=== PATIENT | male | born 1960 | race Caucasian/White ===

== ENCOUNTER 2017-04-22 10:34 | Emergency (ER) | payer OTHER ==
[2017-04-22 10:45] VITALS: BP 145/91; TEMP 96.9; O2SAT 98
[2017-04-22] MEDS ORDERED: OPHTHALMIC SALT SOLUTION 120 ML BTTL ONE (10:47)
--- NOTE | 2017-04-22 10:59 | ED.PDOC ---
History of Present Illness - General Chief Complaint: Eye Problems Stated Complaint: possible metal in left eye Time Seen by Provider: 04/22/17 10:56 Source: patient Exam Limitations: no limitations - History of Present Illness Timing/Duration: 24 hours Improving Factors: nothing Worsening Factors: nothing Allergies/Adverse Reactions: Allergies Eszopiclone [From Lunesta] Allergy (Verified 04/22/17 10:45) Home Medications: Ambulatory Orders Effexor 04/22/17 Moxifloxacin HCl (Ophth) [Vigamox] 3 ml OP 5XD 5 Days #2 ava 04/22/17 Zocor 04/22/17 Review of Systems - Review of Systems Constitutional: States: no symptoms reported EENTM: States: no symptoms reported, eye pain, blurred vision, tearing Respiratory: States: no symptoms reported Cardiology: States: no symptoms reported Gastrointestinal/Abdominal: States: no symptoms reported Genitourinary: States: no symptoms reported Musculoskeletal: States: no symptoms reported Skin: States: no symptoms reported Neurological: States: no symptoms reported Endocrine: States: no symptoms reported Hematologic/Lymphatic: States: no symptoms reported Past Medical History (General) - Patient Medical History Hx Stroke: No Hx Congestive Heart Failure: No Hx Diabetes: No Hx Cancer: Yes - CLL - Vaccination History Hx Tetanus, Diphtheria Vaccination: Yes Hx Influenza Vaccination: No - Social History Hx Tobacco Use: Yes Hx Chewing Tobacco Use: Yes Family Medical History - Family History Father Family History: Unknown Living Status: Unknown Physical Exam - Physical Exam General Appearance: Alert, Comfortable, Well Developed, Well Groomed, Well Hydrated, Well Nourished Eye Exam: right normal - left eye conjunctiva injected there is Flurocein stain uptake int h left eye lower temporal canthus, right other, bilateral abnormal EOM Ears, Nose, Throat: hearing grossly normal, normal ENT inspection Neck: non-tender, full range of motion, supple Respiratory: chest non-tender, lungs clear, normal breath sounds, no respiratory distress, no accessory muscle use Cardiovascular/Chest: normal peripheral pulses, regular rate, rhythm, no edema, no gallop, no JVD, no murmur, JVD Gastrointestinal/Abdominal: normal bowel sounds, non tender, soft Rectal Exam: normal exam, normal rectal tone Back Exam: normal inspection Departure - Departure Clinical Impression: Non-penetrating eye injury Disposition: Discharge to Home or Self Care Condition: Good Departure Forms: ED Discharge - Pt. Copy, Patient Portal Self Enrollment Referrals: LD HORN [Referring] - 1-2 Weeks Prescriptions: Moxifloxacin HCl (Ophth) [Vigamox] 3 ml OP 5XD 5 Days #2 ava Home Medications: Ambulatory Orders Effexor 04/22/17 Moxifloxacin HCl (Ophth) [Vigamox] 3 ml OP 5XD 5 Days #2 ava 04/22/17 Zocor 04/22/17
[2017-04-22] MEDS ORDERED: TOBRAMYCIN SULF 0.3 % OPHT SOL 1 DROP LEFT_EYE ONE (11:08)
== END 2017-04-22 11:39 | disposition home or self-care (01) ==
LOC: ER 10:34
DX: S05.92XA Unspecified injury of left eye and orbit, initial encounter (principal); C91.10 Chronic lymphocytic leukemia of B-cell type not having achieved remission; Z87.891 Personal history of nicotine dependence; X58.XXXA Exposure to other specified factors, initial encounter; Y92.9 Unspecified place or not applicable

== ENCOUNTER 2017-10-02 13:10 | Inpatient (IN) | payer OTHER ==
[2017-10-02] MEDS ORDERED: ONDANSETRON INJ 4 MG/2 ML VIAL IV ONE (13:36)
[2017-10-02] MEDS ORDERED: SODIUM CHLORIDE 0.9% (FLUSH) 10 ML SYG IV PRN ×2 (13:36→18:04)
[2017-10-02] MEDS ORDERED: KETOROLAC TROMETHAMINE INJ 30 MG/ML VIAL IV ONE (13:36)
[2017-10-02] MEDS ORDERED: CLINDAMYCIN IV 900MG 900 MG in PREMIX BAG 1 BAG IVPB ONE (13:37)
[2017-10-02] MEDS ORDERED: diphenhydrAMINE HCL 50 MG/ML VIAL IV ONE (13:37)
[2017-10-02] MEDS ORDERED: CLINDAMYCIN IV 900MG 50 ML IVPB ONE (14:45)
--- NOTE | 2017-10-02 14:57 | ED.PDOC ---
History of Present Illness - General Chief Complaint: Skin/Abrasion/Tear Stated Complaint: right forearm abscess Time Seen by Provider: 10/02/17 13:35 Source: patient Exam Limitations: no limitations - History of Present Illness Initial Comments: PT PRESENTS WITH COMPLAINT OF REDNESS, PAIN, AND SWELLING TO THE RIGHT FOREARM SECONDARY TO A SPIDER BITE 3 DAYS AGO. PT REPORTS HE WAS SEEN THIS AM AT WALK IN CLINIC AND PRESCRIBED KEFLEX. PT REPORTS THAT SWELLING HAS DOUBLED IN SIZE, PAIN HAS INCREASED, AND PT NOW COMPLAINS OF NAUSEA. PT HAS A HISTORY OF CLL AND REPORTS LAST WBC WAS 35,000 Severity: severe Location: extremities Improving Factors: nothing Worsening Factors: nothing Associated Symptoms: change in skin texture, swelling/mass/lumps Allergies/Adverse Reactions: Allergies Eszopiclone [From Lunesta] Allergy (Verified 10/02/17 13:39) Home Medications: Ambulatory Orders Effexor 04/22/17 Moxifloxacin HCl (Ophth) [Vigamox] 3 ml OP 5XD 5 Days #2 ava 04/22/17 Zocor 04/22/17 Review of Systems - Review of Systems Constitutional: Denies: chills, fever EENTM: Denies: nose congestion, throat pain Respiratory: Denies: cough, short of breath Cardiology: Denies: chest pain, palpitations Gastrointestinal/Abdominal: States: nausea. Denies: diarrhea, vomiting Genitourinary: Denies: dysuria, frequency Musculoskeletal: Denies: joint pain, joint swelling Skin: States: change in color, lesions. Denies: rash Neurological: Denies: headache, paresthesia Endocrine: States: no symptoms reported Hematologic/Lymphatic: States: no symptoms reported, see HPI Past Medical History (General) - Patient Medical History Hx Stroke: No Hx Congestive Heart Failure: No Hx Diabetes: No Hx Cancer: Yes - CLL-Lukemia - Vaccination History Hx Tetanus, Diphtheria Vaccination: Yes Hx Influenza Vaccination: No - Social History Hx Tobacco Use: Yes - dips snuff Hx Chewing Tobacco Use: Yes Hx Alcohol Use: No Hx Depression: No Family Medical History - Family History Father Family History: Unknown Living Status: Unknown Physical Exam - Physical Exam General Appearance: Alert, Obvious distress, Well Developed, Well Groomed, Well Hydrated Eyes, Ears, Nose, Throat Exam: normal ENT inspection Neck: normal inspection Cardiovascular/Chest: regular rate, rhythm, no murmur Respiratory: lungs clear, normal breath sounds, no respiratory distress Gastrointestinal/Abdominal: non tender, soft Back Exam: normal inspection Extremity: other - SMALL BITE WOUND NOTED TO RIGHT FOREARM WITH SURROUNDING INDURATION, TENDERNESS, AND ERYTHEMA. NO FLUCTUANCE NOTED. Neurologic: alert, normal mood/affect, oriented x 3 Skin Exam: warm/dry, normal color Skin Problem Location: upper extremities Skin Character: blanching, erythema, tenderness, thickening Progress - Progress Progress: 10/02/17 15:00 PT REPORTS SOME IMPROVEMENT AFTER TORADOL. LABS, DIAGNOSTICS AND PLAN DISCUSSED. WILL ADMIT FOR IV ABX. - Results/Orders Results/Orders: 10/02/17 13:36 IV Care:Saline Lock per Protoc QSHIFT Sodium Chloride 0.9% (Flush) [Saline Flush Syringe] 10 ml IV PRN PRN 10/02/17 13:46 BLOOD CULTURE Stat Laboratory Results - last 24 hr 10/02/17 10/02/17 10/02/17 13:46 13:46 13:46 WBC 37.8 H* RBC 4.74 Hgb 14.4 Hct 43.4 MCV 91.5 MCH 30.4 MCHC 33.2 RDW 14.8 H Plt Count 294 MPV 8.0 Absolute Neuts (auto) 7.00 H Absolute Lymphs (auto) 29.90 H Absolute Monos (auto) 0.60 Absolute Eos (auto) 0.20 Absolute Basos (auto) 0.10 Neutrophils % 18.6 L Neutrophils % (Manual) 16.0 L Lymphocytes % 79.1 H Lymphocytes % (Manual) 80.0 Monocytes % 1.6 L Monocytes % (Manual) 0.0 Eosinophils % 0.4 L Basophils % 0.3 Band Neutrophils 4.0 H Nucleated RBCs 3.0 Platelet Estimate Normal Polychromasia 1+ Poikilocytosis 1+ Anisocytosis 2+ PT 11.1 INR 0.960 PTT (SP) 30.5 Sodium 135 Potassium 3.6 Chloride 104 Carbon Dioxide 28 Anion Gap 6.6 L BUN 21 H Creatinine 1.06 BUN/Creatinine Ratio 19.8 Random Glucose 128 H Serum Osmolality 274.7 L Calcium 9.3 Total Bilirubin 1.1 H Direct Bilirubin 0.2 Indirect Bilirubin 0.9 H AST 31 ALT 35 Alkaline Phosphatase 91 Serum Total Protein 6.7 Albumin 4.3 Departure - Departure Clinical Impression: Nausea, CLL (chronic lymphocytic leukemia) Cellulitis Qualifiers: Site of cellulitis: extremity Site of cellulitis of extremity: upper extremity Laterality: right Qualified Code(s): L03.113 - Cellulitis of right upper limb Insect bites Qualifiers: Encounter type: initial encounter Qualified Code(s): W57.XXXA - Bitten or stung by nonvenomous insect and other nonvenomous arthropods, initial encounter Time of Disposition: 15:02 Disposition: Admit Patient Condition: Fair Departure Forms: ED Discharge - Pt. Copy, Patient Portal Self Enrollment Instructions: DI for Abrasion Home Medications: Ambulatory Orders Effexor 04/22/17 Moxifloxacin HCl (Ophth) [Vigamox] 3 ml OP 5XD 5 Days #2 ava 04/22/17 Zocor 04/22/17 Decision To Admit - Decistion To Admit Decision to Admit Reason: Admit from ER Decision to Admit Date: 10/02/17 Decision to Admit Time: 15:02 - CASE DISCUSSED WITH SHANDA ZELAYA NP WHO AGREES TO ADMIT.
[2017-10-02] MEDS ORDERED: MORPHINE SULFATE INJ 10 MG/ML VIAL IV ONE (15:07)
--- NOTE | 2017-10-02 15:53 | HP ---
SUPERVISING PHYSICIAN: Jah Soto MD CHIEF COMPLAINT: Abscess to right forearm. HISTORY OF PRESENT ILLNESS: Mr. Siddiqi is a 56 year-old male patient with a history of chronic lymphocytic leukemia, not currently on any medications with last white count reported to be newa6oh 35,000. He presented to the Emergency Room today with what he considered to be a spider bite that occurred three days previous and this resulted in some redness, pain and swelling to his right forearm. He notes that this morning he got up and went to the walk-in clinic and was given a prescription for Keflex and since that time the swelling doubled in size, the pain increased and he started having some nausea. At that point, he presented to the Emergency Department for further evaluation and treatment. His laboratory studies showed he had a white count of 37,800 with a past white count of around 35,000 but there was note of 4% bands on a differential. Platelet count was normal at 294,000, there was also note of a left shift. Vital signs showed that he was afebrile, his temperature was 98.4. Examination by Dr. Buckley in the Emergency Room noted that on his right forearm he had an area of induration that was tender with some erythema but no obvious fluctuance was noted. There was note of a small bite wound in the central portion of the cellulitis. Dr. Buckley requested the patient be placed in observation, at least for initiation of the parenteral antibiotics given that he had a significant change in his symptoms including fever, nausea and rapid worsening of the area in question. He was given 900 mg of Clindamycin and is now going to be admitted to the hospital for further treatment and evaluation of cellulitis secondary to a possible spider bite. He was admitted in stable condition. PAST MEDICAL HISTORY: 1. Chronic lymphocytic leukemia. 2. Seasonal allergies. PAST SURGICAL HISTORY: 1. Left ankle surgery for a fracture with plates. 2. Two shoulder surgeries on the right. CURRENT MEDICATIONS: 1. Flonase, one spray nasally daily. 2. Aspirin 81 mg daily. 3. Snowflake 3000 mg twice a day. 4. Zocor 40 mg daily. 5. Green tea supplement daily. ALLERGIES: LUNESTA FAMILY HISTORY: Noncontributory. 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 He currently lives in [place], just recently having moved to [place]. He is . He drinks on a social basis and utilizes smokeless tobacco and has never smoked. REVIEW OF SYSTEMS: CONSTITUTIONAL: Denies chills and fever.or unintentional weight loss. HEENT: Denies nasal congestion, throat pain, headaches or earaches. CHEST: Denies cough, shortness of breath or wheezing. CARDIAC: Denies chest pain, palpitations or edema. GASTROINTESTINAL: Denies diarrhea or vomited but has had some nausea. No constipation or abdominal pain. GENITOURINARY: Denies dysuria, hematuria, increased frequency or other urinary symptoms. MUSCULOSKELETAL: Denies edema, joint pain or joint swelling. INTEGUMENT: As noted in the history of present illness. Area of cellulitis to the forearm but no rashes or lesions note elsewhere. NEUROLOGICAL: Denies headaches. paresthesia, ataxia, seizure. HEMATOLOGICAL: As noted in history of present illness, chronic lymphocytic leukemia being followed by a dough mixer operator in [place]. Currently only on supplements with close monitoring but no currently reported no symptoms. . PHYSICAL EXAMINATION: VITAL SIGNS: Temperature 98.8, pulse 73, blood pressure 133/75, respirations 18, saturation 96% on room air. Admission weight 113 kg. GENERAL: The patient appeared to be alert and in no acute distress. Well- hydrated, well-nourished. HEENT: Tympanic membranes are clear bilaterally. Oropharynx pink and moist with no lesions noted. NECK: Supple, non-tender with full range of motion. CHEST: Lungs are clear to auscultation bilaterally without any rhonchi, rales , or wheezes. CARDIOVASCULAR: Regular rate and rhythm without appreciable murmurs, rubs, or gallops. ABDOMEN: Soft, non-tender, positive bowel sounds. EXTREMITIES: On the right forearm is an area of redness, erythema, induration , approximately 5 cm in circumference with no obvious fluctuance or consolidations or drainage. No rash or streaking is noted. The site is warm to touch. All other extremities are within normal limits with no lesions, rashes, edema, or clubbing or cyanosis. NEUROLOGIC: He is alert and oriented x 3. Cranial nerves II through XII grossly intact. LABORATORY: CBC showed a white count of 37,800 with a hemoglobin of 14.4 and hematocrit 43.4, platelet count 294,000. Differential did show a left shift with increased bands of 4%. Coagulation studies showed normal PT/PTT. Chemistries showed BUN of 21, creatinine 1.06, electrolytes were normal. Glucose 128, calcium 9.3, bilirubin was slightly elevated at 1.1. All other liver functions were within normal limits. He had a C-reactive protein that was less than 0.05 on admission. MICROBIOLOGY: Blood cultures are pending. RADIOLOGY: No radiographic studies were submitted. ASSESSMENT: 1. Cellulitis to the right forearm with developing abscess secondary to insect bite, possible spider, requiring initiation of parenteral antibiotics to include vancomycin and Unasyn. 2. History of chronic lymphocytic leukemia currently being followed by dough mixer operator in [place] with last white count reported to be around 35,000, not on any current medications other than natural supplements. 3. Seasonal allergies. PLAN: The patient is going to be admitted to the medical/surgical floor for initiation of treatment with parenteral antibodies to include vancomycin initially. I will give him 2000 mg tonight with Unasyn 3 grams every 6 hours. In the morning, we will order a vancomycin per pharmacy protocol. The area has been marked for the borders to closely monitor treatment course of any changes. Should the area show any significant fluctuation, certainly we will consult with Dr. Munoz. Considerations for a soft tissue ultrasound in the morning to insure there is no deep tissue abscess. Will continue with antibiotics for at least 24 to 48 hours until patient shows clinical improvement. He will be on DVT prophylaxis; as per protocol. Will anticipate length of stay to be 2 to 3 days. Once the patient shows to be clinically stable and improving, he certainly can be discharged with continuation of antibiotic therapy to include vancomycin or Augmentin as appropriate. Until the, we will continue to monitor and treat appropriately. #[id number] [facility]
[2017-10-02] MEDS ORDERED: MORPHINE SULFATE INJ 10 MG/ML VIAL IV PRN (18:04)
[2017-10-02] MEDS ORDERED: TEMAZEPAM 15 MG CAP PO PRN (18:04)
[2017-10-02] MEDS ORDERED: ONDANSETRON INJ 4 MG/2 ML VIAL IV PRN (18:04)
[2017-10-02] MEDS ORDERED: HYDROcodone 5MG/APAP 325MG 1 EA TAB PO PRN (18:04)
[2017-10-02] MEDS ORDERED: ACETAMINOPHEN 325 MG TAB PO PRN (18:04)
[2017-10-02] MEDS ORDERED: AMPICILLIN & SULBACTAM SODIUM 3 GM VIAL ONE ×3 (18:23→19:18)
[2017-10-02] MEDS ORDERED: SODIUM CHL 0.9% 100ML MINI-BAG 100 ML IVPB ONE ×3 (18:23→19:18)
[2017-10-02] MEDS: AMPICILLIN & SULBACTAM SODIUM 3 GM in SODIUM CHL 0.9% 100ML MINI-BAG 100 ML IVPB SCH (18:24)
[2017-10-02] MEDS ORDERED: IV SET AND CAP CHANGE INJ INJ SCH (18:30)
[2017-10-02] MEDS ORDERED: SODIUM CHLORIDE 0.9% 500ML 500 ML ONE (19:16)
[2017-10-02] MEDS ORDERED: VANCOMYCIN HCL INJ 1,000 MG VIAL IVPB ONE (19:17)
[2017-10-02] MEDS: KCL 20MEQ/D5 1/2NS 1,000 ML IVS PRN (20:09)
--- NOTE | 2017-10-02 21:35 | PCM.CORE ---
Physician DVT/VTE - Nurse DVT Assessment & Total Each Risk Factor Represents 2 Points: Malignancy (present/past) Each Risk Factor Represents 1 Point: Age 41-60 Each Risk Factor is 1 Point: Obesity (BMI >25) DVT Assessment Score: 4 - 3-4 High Risk Treatments: Early Ambulation *, Sequential Compression Device Pharmacological: Enoxaparin 40 mg SQ Daily
[2017-10-02] MEDS ORDERED: ENOXAPARIN SODIUM 40 MG/0.4 ML SYG SUBCU SCH (22:00)
[2017-10-02] MEDS ORDERED: VANCOMYCIN HCL INJ 2,000 MG in SODIUM CHLORIDE 0.9% 500ML 500 ML IVPB SCH (23:00)
[2017-10-03] MEDS: AMPICILLIN & SULBACTAM SODIUM 3 GM in SODIUM CHL 0.9% 100ML MINI-BAG 100 ML IVPB SCH ×4 (01:29→18:02)
[2017-10-03] MEDS ORDERED: SIMVASTATIN 20 MG TAB ONE (07:52)
[2017-10-03] MEDS ORDERED: SODIUM CHL 0.9% 100ML MINI-BAG 100 ML IVPB ONE ×4 (07:52→19:50)
[2017-10-03] MEDS ORDERED: AMPICILLIN & SULBACTAM SODIUM 3 GM VIAL ONE ×4 (07:53→19:50)
[2017-10-03] MEDS ORDERED: VANCOMYCIN PER PHARMACY INJ SCH (09:00)
[2017-10-03] MEDS: ASPIRIN EC 81 MG TAB PO SCH (09:05)
[2017-10-03] MEDS: SIMVASTATIN 20 MG TAB PO SCH (09:05)
[2017-10-03] MEDS: FLUTICASONE PROP 0.05% NASAL 16 GM BTTL BNAS SCH (10:30)
[2017-10-03] MEDS ORDERED: VANCOMYCIN HCL INJ 500 MG VIAL ONE ×2 (10:47→19:47)
[2017-10-03] MEDS ORDERED: VANCOMYCIN HCL INJ 1,000 MG VIAL IVPB ONE ×2 (10:48→19:49)
[2017-10-03] MEDS ORDERED: SODIUM CHLORIDE 0.9% 250ML 250 ML ONE ×2 (10:48→19:48)
[2017-10-03] MEDS: VANCOMYCIN HCL INJ 1,000 MG, VANCOMYCIN HCL INJ 500 MG in SODIUM CHLORIDE 0.9% 250ML 25... IVPB SCH ×2 (10:51→21:39)
[2017-10-03] MEDS: KCL 20MEQ/D5 1/2NS 1,000 ML IVS PRN (10:52)
[2017-10-03] MEDS: BIFIDOBACTERIUM INFANTIS 4 MG CAP PO SCH (14:11)
--- NOTE | 2017-10-03 14:38 | PN ---
SUPERVISING PHYSICIAN: Jah Soto MD DATE: 10/03/17 SUBJECTIVE: The patient has been afebrile. He has had no nausea or vomiting. He notes the pain in his arms is much less than it was on admission. OBJECTIVE: VITAL SIGNS: Temperature 99.4. Pulse 79. Blood pressure 121/78. Respirations 16. Saturation 96% on room air. I&Os show positive balance of 840 with 1790 in, 950 out. Weight 112.8 kg. CHEST: Lungs clear to auscultation. HEART: Regular rate and rhythm. ABDOMEN: Soft, nontender. Positive bowel sounds. EXTREMITIES: Right forearm shows continued area of erythema and induration which is decreased with the borders receding from the marked areas on admission. Still no area of fluctuance or consolidation for possible I&D at this point. Distally, his hand has just trace edema with no reported paresthesias and pulses distally are strong. Capillary refill is brisk. NEUROLOGIC: Alert and oriented times three. LABORATORY: White count down to 35,200, hemoglobin 13.4, hematocrit 40.7, platelet count 267,000. Differential is without a left shift. Chemistries show normal electrolytes, potassium 4.3, BUN 17, creatinine 0.99. Calcium 8.4. MICROBIOLOGY: Blood cultures remain negative after 24 hours. RADIOLOGY: There are no additional radiographic studies. ASSESSMENT: 1. Cellulitis to the right forearm with an area of abscess secondary to insect bite, possible spider, without any obvious consolidations or fluctuance to for an I&D at this point, showing improvement with parenteral antibiotics to include vancomycin and Unasyn. 2. 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 3. Seasonal allergies. PLAN: We will continue the antibiotic therapy for an additional 24 hours with vancomycin and Unasyn. We will reassess in the morning. Again, should it show an area of consolidation and fluctuation for possible I&D, certainly we will consult with Dr. Munoz in regards to completing the procedure. We may need to get an ultrasound in the morning if the area continues to be large and indurated to further assess for possible deep abscess. At this point, it seems to be improving. The patient will be able to be discharged after noted to be clinically stable to continue outpatient therapy recommended with at least doxycycline and Augmentin for continuation of treatment for probably 10 days. Until discharge, we will continue to monitor the patient closely and treat appropriately. [facility][id number] [facility]
[2017-10-03] MEDS ORDERED: ENOXAPARIN SODIUM 40 MG/0.4 ML SYG SUBCU SCH (21:00)
[2017-10-04] MEDS: AMPICILLIN & SULBACTAM SODIUM 3 GM in SODIUM CHL 0.9% 100ML MINI-BAG 100 ML IVPB SCH ×3 (00:03→12:17)
[2017-10-04] MEDS ORDERED: SODIUM CHLORIDE 0.9% 250ML 250 ML ONE (08:15)
[2017-10-04] MEDS ORDERED: VANCOMYCIN HCL INJ 500 MG VIAL ONE (08:15)
[2017-10-04] MEDS ORDERED: VANCOMYCIN HCL INJ 1,000 MG VIAL IVPB ONE (08:16)
[2017-10-04] MEDS: ASPIRIN EC 81 MG TAB PO SCH (08:37)
[2017-10-04] MEDS: SIMVASTATIN 20 MG TAB PO SCH (08:37)
[2017-10-04] MEDS: BIFIDOBACTERIUM INFANTIS 4 MG CAP PO SCH (08:37)
[2017-10-04] MEDS: FLUTICASONE PROP 0.05% NASAL 16 GM BTTL BNAS SCH (09:51)
[2017-10-04] MEDS: VANCOMYCIN HCL INJ 1,000 MG, VANCOMYCIN HCL INJ 500 MG in SODIUM CHLORIDE 0.9% 250ML 25... IVPB SCH (10:00)
[2017-10-04] MEDS ORDERED: SODIUM CHL 0.9% 100ML MINI-BAG 100 ML IVPB ONE (12:09)
[2017-10-04] MEDS ORDERED: AMPICILLIN & SULBACTAM SODIUM 3 GM VIAL ONE (12:10)
[2017-10-04 14:46] VITALS: BP 129/76; TEMP 98.4; O2SAT 98
--- NOTE | 2017-10-04 17:29 | DS ---
SUPERVISING PHYSICIAN: Jah Soto M.D. DISCHARGE DIAGNOSIS: 1. Cellulitis to the right forearm with an area of abscess secondary to insect bite, possible spider, without any obvious consolidations or fluctuance for an I &D at this point. As an inpatient he has been on vancomycin and Unasyn. 2. History of chronic lymphocytic leukemia currently being followed by patent agent in [place] with last white count prior to hospitalization reported to be around 35,000. He is currently on no medications other than natural supplements. 3. Seasonal allergies. HISTORY OF PRESENT ILLNESS: This is a 56 year-old male patient who has a history of chronic lymphocytic leukemia, not currently on any medications and his baseline WBCs are usually around 35,000. He sees an oncologist in [place] and sees the oncologist about twice yearly. He came to the Emergency Room with what was considered to be a spider bite that occurred three days prior to admission. He had some redness, pain and swelling to that right forearm. The morning of admission he went to the walk-in clinic and was given a prescription for Keflex, but shortly thereafter the swelling doubled in size and the pain increased to the point that he had some nausea. Then he came to the Emergency Room for further treatment and evaluation. His lab studies showed he had a white count of 37,800. His baseline white count is 35,000. There were also 4% bands on differential. Platelet count was normal at 294,000 but there was also a noted left shift. He was afebrile. There was an area of induration on his right forearm but no fluctuance. There appeared to be a small bite wound to the central portion of the cellulitis. The patient was placed in Observation and given parenteral antibiotics. HOSPITAL COURSE: In the Emergency Room he was given clindamycin, but after admission it was changed to vancomycin and Unasyn. His vital signs remained stable throughout his hospital stay. WBCs yesterday were 35,200. Electrolytes were basically within normal limits. C reactive protein was less than 0.5. The area of cellulitis has improved by over 50%. The patient has no complaints of pain other than mild topical pain. Today, there is an area that looks to be a small fluid-filled abscess. I will culture the wound prior to discharge. The patient is in stable condition and he will be discharged home today. DISCHARGE PLAN: The patient will be discharged home in stable condition. He is to resume his previous diet and activity. He is to have a followup appointment with Dr. Soto on October 12 to establish care as well as to followup on his hospitalization. He is being discharged on Augmentin for 11 additional days. I have also recommended that he take a probiotic while taking his antibiotic. He is to return to the hospital or call Dr. Soto's office for any further problems or complications. DISCHARGE MEDICATIONS: 1. Zocor. 2. Green tea tab. 3. [place]-3. 4. Aspirin. 5. Fluticasone nasal spray. 6. Augmentin. 7. Align. Dr. Soto is the collaborating physician available for consultation. #[id number] [facility]
== END 2017-10-04 14:50 | disposition home or self-care (01) | DRG 607 ==
LOC: ER 13:10 → OBSVTOIN 15:52 → MS 15:52
PROVIDERS: ADMIT Nurse Practitioner Family; ATTEND Nurse Practitioner Acute Care
DX: S50.861A Insect bite (nonvenomous) of right forearm, initial encounter (principal); L03.113 Cellulitis of right upper limb; L02.413 Cutaneous abscess of right upper limb; C91.10 Chronic lymphocytic leukemia of B-cell type not having achieved remission; W57.XXXA Bitten or stung by nonvenomous insect and other nonvenomous arthropods, initial encounter

== ENCOUNTER 2017-12-24 16:21 | Emergency (ER) | payer OTHER ==
[2017-12-24] MEDS ORDERED: CHLORHEXIDINE GLUCONATE 4 % 15 ML UD TOP ONE (16:42)
--- NOTE | 2017-12-24 16:49 | ED.PDOC ---
History of Present Illness - General Chief Complaint: Skin/Abrasion/Tear Stated Complaint: painful lesion skin back Time Seen by Provider: 12/24/17 16:45 Source: patient Exam Limitations: no limitations - History of Present Illness Initial Comments: Husam Siddiqi 57 y/o male stated that he had tender knot on his lower back which gradually got more painful the last 2 d ays.Had body aches ,feels warm.No nausea,vomiting or pain radiation.Has history of chronic lymphocytic leukemia on regular follow up no chemotherapy. Timing/Duration: other - see hpi Severity: moderate Location: torso Improving Factors: nothing Worsening Factors: nothing Associated Symptoms: change in skin texture, other - see hpi Allergies/Adverse Reactions: Allergies Eszopiclone [From Lunesta] Allergy (Verified 12/24/17 16:39) Home Medications: Ambulatory Orders Simvastatin [Zocor] 40 mg PO DAILY #0 04/22/17 Misc Natural Products [Green Tea] 2 tab PO DAILY 10/02/17 [place] 3 1000 mg 1,000 mg PO BID 10/02/17 Clindamycin HCl [Cleocin] 300 mg PO BID #30 cap 12/24/17 Tramadol HCl 50 mg PO TID #14 tab 12/24/17 Review of Systems - Review of Systems Constitutional: States: see HPI EENTM: States: no symptoms reported Respiratory: States: no symptoms reported Cardiology: States: no symptoms reported Skin: States: see HPI Hematologic/Lymphatic: States: see HPI Past Medical History (General) - Patient Medical History Hx Seizures: No Hx Stroke: No Hx Asthma: No Hx of COPD: No Hx Cardiac Disorders: Yes - hypercholesterolemia Hx Congestive Heart Failure: No Hx Pacemaker: No Hx Hypertension: Yes Hx Diabetes: No Hx Cancer: Yes - CLL Hx MRSA: No Surgical History: no surgical history - Vaccination History Hx Tetanus, Diphtheria Vaccination: Yes Hx Influenza Vaccination: No - Social History Hx Tobacco Use: Yes - dips snuff Hx Chewing Tobacco Use: Yes Hx Alcohol Use: No Hx Substance Use: No Hx Depression: No Hx Physical Abuse: No Hx Emotional Abuse: No Family Medical History - Family History Father Family History: Unknown Living Status: Unknown Physical Exam - Physical Exam General Appearance: Alert, Comfortable, No apparent distress Eyes, Ears, Nose, Throat Exam: normal ENT inspection Neck: non-tender, full range of motion, supple Cardiovascular/Chest: normal peripheral pulses, regular rate, rhythm, no murmur Respiratory: chest non-tender, lungs clear, normal breath sounds Gastrointestinal/Abdominal: normal bowel sounds, non tender, soft, no organomegaly Back Exam: no CVA tenderness Extremity: non-tender, no pedal edema, no calf tenderness Neurologic: alert, oriented x 3 Skin Exam: warm/dry, normal color Skin Problem Location: other - lower back left side Skin Character: tenderness - skin induration;NON fluctuant, warm, other - central erythema Lymphatic: no adenopathy Progress - Progress Progress: 12/24/17 16:51 Vital Signs - 8 hr 12/24/17 16:33 Temperature 100.4 F H Pulse Rate [ 88 Left Radial] Respiratory 18 Rate Blood Pressure 144/74 [Left Arm] O2 Sat by Pulse 95 Oximetry Departure - Departure Clinical Impression: Carbuncle of back Time of Disposition: 16:52 Disposition: Discharge to Home or Self Care Condition: Fair Departure Forms: ED Discharge - Pt. Copy, Patient Portal Self Enrollment Instructions: [place] (DC) Referrals: Garfield Christie MD [Primary Care Provider] - 1-2 Weeks Prescriptions: Clindamycin HCl [Cleocin] 300 mg PO BID #30 cap Tramadol HCl 50 mg PO TID #14 tab Home Medications: Ambulatory Orders Simvastatin [Zocor] 40 mg PO DAILY #0 04/22/17 Misc Natural Products [Green Tea] 2 tab PO DAILY 10/02/17 [place] 3 1000 mg 1,000 mg PO BID 10/02/17 Clindamycin HCl [Cleocin] 300 mg PO BID #30 cap 12/24/17 Tramadol HCl 50 mg PO TID #14 tab 12/24/17 Additional Instructions: Follow up with primary 26 December 2017 or/with [id number] for recheck; May use warm moist pack to affected area every 4 hours as needed during waking hours only until better
[2017-12-24] MEDS ORDERED: HYDROcodone 10MG/APAP 325MG 1 EA TAB PO ONE (16:52)
[2017-12-24] MEDS ORDERED: CLINDAMYCIN PHOSPHATE 150 MG/ML VIAL IM ONE (16:52)
[2017-12-24] MEDS ORDERED: CLINDAMYCIN HCL CAP 150 MG CAP PO ONE (16:52)
[2017-12-24] MEDS ORDERED: ONDANSETRON ODT 8 MG TAB ONE (17:22)
[2017-12-24] MEDS ORDERED: ONDANSETRON ODT 8 MG TAB SL ONE (17:24)
[2017-12-24] MEDS ORDERED: ONDANSETRON ODT (ER DISP) 8 MG TAB PO ONE (17:24)
[2017-12-25 17:47] VITALS: BP 126/69; TEMP 100.4; O2SAT 98
== END 2017-12-24 17:30 | disposition home or self-care (01) ==
LOC: ER 16:21
DX: L02.232 Carbuncle of back [any part, except buttock and flank] (principal); E78.00 Pure hypercholesterolemia, unspecified; I10 Essential (primary) hypertension; F17.220 Nicotine dependence, chewing tobacco, uncomplicated; Z85.6 Personal history of leukemia; Z79.899 Other long term (current) drug therapy; Z88.8 Allergy status to other drugs, medicaments and biological substances

== ENCOUNTER → 2017-12-29 | Outpatient (CLI) | payer OTHER ==
--- NOTE | 2017-12-29 15:38 | RAD ---
EXAM DESCRIPTION: Lumbosacral w/Oblique,Flex,Ext CLINICAL HISTORY: 57 years Male, LOW BACK PAIN COMPARISON: None. FINDINGS: Six views of the lumbar spine show no vertebral body fracture or subluxation. There is mild disc space narrowing at several levels with small marginal osteophytes also present at several levels. No pars defect is identified. The sacroiliac joint spaces are fairly well-maintained. Mild dextroscoliosis. IMPRESSION: Mild multilevel degenerative changes including slight dextroscoliosis. No acute lumbar spine abnormality. Electronically signed by: Ritesh Blanchard MD 12/29/2017 3:36 PM CDT
== END ==
LOC: RAD 11:31
PROVIDERS: ATTEND Orthopaedic Surgery
DX: M54.16 Radiculopathy, lumbar region (principal); M47.26 Other spondylosis with radiculopathy, lumbar region

== ENCOUNTER → 2018-02-02 | Outpatient (CLI) | payer OTHER | LOC: GMAM 10:29 | PROVIDERS: ATTEND Family Medicine | DX: I25.10 Atherosclerotic heart disease of native coronary artery without angina pectoris (principal) ==

== ENCOUNTER 2018-03-08 23:40 | Emergency (ER) | payer OTHER ==
[2018-03-08] MEDS ORDERED: MORPHINE SULFATE INJ 10 MG/ML VIAL IV ONE (23:49)
[2018-03-08] MEDS ORDERED: ONDANSETRON INJ 4 MG/2 ML VIAL IV ONE (23:49)
[2018-03-08 23:55] VITALS: O2SAT 97
--- NOTE | 2018-03-09 00:10 | ED.PDOC ---
History of Present Illness - General Chief Complaint: Abdominal Pain Stated Complaint: sharp lower abd pain Time Seen by Provider: 03/08/18 23:42 Source: patient Exam Limitations: no limitations - History of Present Illness Initial Comments: Patient presents with mid-lower abdominal pain for two hours. It is constant but intermittent in intensity. Feels like "someone is clutching my guts". Associated with nausea. Denies previous episodes. No history of abdominal surgeries. He had lumbar surgery last week and has been taking hydrocodone. He normally has several bowel movements per day but he has not had one since yesterday. He thought it was gas and he took Immodium without relief. Has a history of kidney stones. No other complaints. Timing/Duration: 1-3 hours Severity: severe Improving Factors: nothing Worsening Factors: cold therapy Associated Symptoms: denies symptoms Allergies/Adverse Reactions: Allergies Eszopiclone [From Lunesta] Allergy (Verified 12/24/17 16:39) Home Medications: Ambulatory Orders Simvastatin [Zocor] 40 mg PO DAILY #0 04/22/17 Misc Natural Products [Green Tea] 2 tab PO DAILY 10/02/17 [place] 3 1000 mg 1,000 mg PO BID 10/02/17 Clindamycin HCl [Cleocin] 300 mg PO BID #30 cap 12/24/17 Tramadol HCl 50 mg PO TID #14 tab 12/24/17 Review of Systems - Review of Systems Constitutional: States: no symptoms reported EENTM: States: no symptoms reported Respiratory: States: no symptoms reported Cardiology: States: no symptoms reported Gastrointestinal/Abdominal: States: see HPI Genitourinary: States: no symptoms reported Musculoskeletal: States: no symptoms reported Skin: States: no symptoms reported Neurological: States: no symptoms reported Endocrine: States: no symptoms reported Hematologic/Lymphatic: States: no symptoms reported Past Medical History (General) - Patient Medical History Hx Seizures: No Hx Stroke: No Hx Asthma: No Hx of COPD: No Hx Cardiac Disorders: Yes - hypercholesterolemia Hx Congestive Heart Failure: No Hx Pacemaker: No Hx Hypertension: Yes Hx Diabetes: No Hx Cancer: Yes - CLL Hx MRSA: No - Vaccination History Hx Tetanus, Diphtheria Vaccination: Yes Hx Influenza Vaccination: No - Social History Hx Tobacco Use: Yes Hx Chewing Tobacco Use: Yes Hx Alcohol Use: No Hx Substance Use: No Hx Depression: No Hx Physical Abuse: No Hx Emotional Abuse: No Family Medical History - Family History Father Family History: Unknown Living Status: Unknown Physical Exam - Physical Exam General Appearance: Obvious distress Eye Exam: bilateral normal Ears, Nose, Throat: normal ENT inspection Neck: non-tender, full range of motion, supple Respiratory: lungs clear, normal breath sounds Cardiovascular/Chest: normal peripheral pulses, regular rate, rhythm, no edema Gastrointestinal/Abdominal: tenderness - TTP at mid lower abdomen, + NABS, soft Back Exam: normal inspection, no CVA tenderness Extremity: normal range of motion, non-tender, normal inspection Neurologic: no motor/sensory deficits, alert, normal mood/affect, oriented x 3 Progress - Progress Progress: 03/09/18 01:13 Laboratory Tests 03/09/18 03/09/18 03/09/18 00:06 00:06 00:30 WBC 39.3 H* RBC 4.75 Hgb 14.3 Hct 43.8 MCV 92.3 MCH 30.2 MCHC 32.7 L RDW 14.9 H Plt Count 393 MPV 7.7 Absolute Neuts (auto) 4.70 Absolute Lymphs (auto) 33.30 H Absolute Monos (auto) 0.80 Absolute Eos (auto) 0.30 Absolute Basos (auto) 0.10 Neutrophils % 12.0 L Neutrophils % (Manual) 18.0 L Lymphocytes % 84.8 H Lymphocytes % (Manual) 79.0 Monocytes % 2.1 Monocytes % (Manual) Not Reportable Eosinophils % 0.7 L Basophils % 0.4 Band Neutrophils 3.0 H Platelet Estimate Normal Sodium 136 Potassium 4.8 Chloride 105 Carbon Dioxide 25 Anion Gap 10.8 L BUN 19 H Creatinine 0.90 BUN/Creatinine Ratio 21.1 H Random Glucose 117 H Serum Osmolality 275.2 Lactic Acid 1.7 Calcium 9.6 Total Bilirubin 1.5 H AST 37 ALT 32 Alkaline Phosphatase 121 Serum Total Protein 7.1 Albumin 4.1 Globulin 3.0 Albumin/Globulin Ratio 1.4 Lipase 33 wbc 39.3. I checked with the patient to see if that was his baseline since he has CLL and he said it was. His amount of pain was concerning and he was sent emergently to CT. CT showed no acute process and moderate stool. Lactic acid was 1.7 arguing against mesenteric ischemia. It is likely that he has developed constipation from recent hydrocodone use. He was initially given morphine 4 mg IV x one and Zofran 4 mg IV x one. His pain resolved shortly after the CT scan and he went to sleep. Later was given Toradol 30 mg IV x one to avoid any more opiod effects on colonic transit and discharged with care instructions for constipation. Questions were elicited and answered. The patient voiced understanding and agreement with the plan. 03/09/18 01:19 Departure - Departure Clinical Impression: Abdominal pain, Constipation Disposition: Discharge to Home or Self Care Condition: Good Departure Forms: ED Discharge - Pt. Copy, Patient Portal Self Enrollment Instructions: DI for Abdominal Pain-Adult Diet: other - Increase fluids and fruit juices. May use Miralax. Activity: increase activity as tolerated Referrals: Jah Soto MD [Primary Care Provider] - 1-2 Weeks Home Medications: Ambulatory Orders Simvastatin [Zocor] 40 mg PO DAILY #0 04/22/17 Misc Natural Products [Green Tea] 2 tab PO DAILY 10/02/17 [place] 3 1000 mg 1,000 mg PO BID 10/02/17 Clindamycin HCl [Cleocin] 300 mg PO BID #30 cap 12/24/17 Tramadol HCl 50 mg PO TID #14 tab 12/24/17 Additional Instructions: Return to the E.R. or call your regular doctor if symptoms continue or worsen. Return for a temperature above 100.4.
--- NOTE | 2018-03-09 00:40 | CT ---
EXAM DESCRIPTION: Abdoment/Pelvis w/o Contrast CLINICAL HISTORY:57 years Male, lower abdominal pain. Nausea. History of stones. Low back surgery 2 weeks ago Comparison: None TECHNIQUE: Contiguous axial images of the abdomen and pelvis were obtained followed by reconstruction images. This exam was performed according to our departmental dose-optimization program, which includes automated exposure control, adjustment of the mA and/or kV according to patient size and/or use of iterative reconstruction technique. FINDINGS: Lung bases: Lung bases are clear. Heart: Visualized heart is within normal limits in size. Liver:Unremarkable. No focal liver lesion. Gallbladder:Unremarkable. No gallstones. No gallbladder wall thickening or pericholecystic fluid. Spleen:Unremarkable Pancreas: Pancreas is unremarkable. Adrenal glands:Within normal limits. Kidneys/ureters:Within normal limits Bladder:Unremarkable. Pelvic organs: No acute abnormality Vascular structures: within normal limits Peritoneum: No free fluid. Lymph nodes: No abnormal lymph nodes. Stomach/small bowel/colon: Stomach is unremarkable. Small bowel is unremarkable. Moderate colonic stool. No acute colon abnormality. Appendix: Appendix is seen and is within normal limits. Bones: Mild spine degenerative changes. Soft tissues: Small fat containing right inguinal hernia.. Mild infiltration within the posterior soft tissues overlying the lumbar spine consistent with recent intervention. Left laminectomy seen at L4. IMPRESSION: No acute intra-abdominal abnormality. Moderate colonic stool. Electronically signed by: Henry Ivy MD 03/09/2018 12:39 AM CDT
[2018-03-09] MEDS ORDERED: KETOROLAC TROMETHAMINE INJ 30 MG/ML VIAL IV ONE (01:17)
[2018-03-09 01:38] VITALS: BP 128/76; TEMP 99.1
== END 2018-03-09 01:33 | disposition home or self-care (01) ==
LOC: ER 23:40
DX: K59.00 Constipation, unspecified (principal); R10.30 Lower abdominal pain, unspecified; R11.0 Nausea; E78.00 Pure hypercholesterolemia, unspecified; I10 Essential (primary) hypertension; Z87.442 Personal history of urinary calculi; Z85.6 Personal history of leukemia; Z87.891 Personal history of nicotine dependence
CPT/HCPCS: 74176; 80053; 81001; 83605; 83690; 85007; 85025; J1885; J2270; J2405

== ENCOUNTER → 2019-11-05 | Outpatient (CLI) | payer BC | LOC: GMAHI 11:26 | PROVIDERS: ATTEND Nurse Practitioner Family | DX: E34.9 Endocrine disorder, unspecified (principal) ==

== ENCOUNTER 2020-06-09 12:57 | Emergency (ER) | payer BC ==
[2020-06-09] MEDS ORDERED: ACETAMINOPHEN 500 MG TAB ONE (16:00)
[2020-06-09] MEDS ORDERED: SODIUM CHLORIDE 0.9% 1000ML 1,000 ML ONE (16:00)
[2020-06-09] MEDS ORDERED: ACETAMINOPHEN 500 MG TAB PO ONE (16:04)
[2020-06-09] MEDS ORDERED: SODIUM CHLORIDE 0.9% 1000ML 500 ML IVS ONE (16:04)
[2020-06-09] MEDS ORDERED: AZITHROMYCIN IV 500 MG in SODIUM CHLORIDE 0.9% 250ML 250 ML IVPB ONE (16:36)
[2020-06-09] MEDS ORDERED: methylPREDNISolone SODIUM SUC 125 MG/2 ML VIAL IV ONE (16:36)
--- NOTE | 2020-06-09 16:41 | ED.PDOC ---
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 H/O CLL LEUKEMIA, SEES ONC. Timing/Duration: 1 week Severity: moderate Improving Factors: nothing Worsening Factors: movement Associated Symptoms: fever/chills, malaise Allergies/Adverse Reactions: Allergies Eszopiclone [From Lunesta] Allergy (Verified 06/09/20 13:20) Home Medications: Ambulatory Orders Simvastatin [Zocor] 40 mg PO DAILY #0 04/22/17 Misc Natural Products [Green Tea] 2 tab PO DAILY 10/02/17 [place] 3 1000 mg 1,000 mg PO BID 10/02/17 Clindamycin HCl [Cleocin] 300 mg PO BID #30 cap 12/24/17 Tramadol HCl 50 mg PO TID #14 tab 12/24/17 Albuterol Inhaler [Ventolin Hfa Inhaler] 2 puff INH Q6H PRN #1 inh 06/09/20 Azithromycin Tab [Zithromax Tab] 250 mg PO DAILY 4 Days #4 tab 06/09/20 Dexamethasone 6 mg PO DAILY 5 Days #5 tab 06/09/20 Hydroxychloroquine Sulfate [Hydroxychloroquine Sulfat] 200 mg PO BID 5 Days #10 tab 06/09/20 Review of Systems - Review of Systems Constitutional: States: chills, fever, malaise, weakness EENTM: Denies: ear pain, throat pain, mouth pain Respiratory: Denies: cough, short of breath Cardiology: Denies: chest pain, palpitations Gastrointestinal/Abdominal: Denies: abdominal pain, nausea Genitourinary: States: no symptoms reported Musculoskeletal: States: other - MYALGIAS, GENERAL. . Denies: neck pain Skin: States: no symptoms reported Neurological: States: no symptoms reported Endocrine: States: no symptoms reported Hematologic/Lymphatic: States: no symptoms reported All other Systems: Reviewed and Negative Past Medical History (General) - Patient Medical History Hx Seizures: No Hx Stroke: No Hx Asthma: No Hx of COPD: No Hx Cardiac Disorders: Yes - hypercholesterolemia Hx Congestive Heart Failure: No Hx Pacemaker: No Hx Hypertension: Yes Hx Diabetes: No Hx Cancer: Yes - CLL Hx MRSA: No - Vaccination History Hx Tetanus, Diphtheria Vaccination: Yes Hx Influenza Vaccination: No - Social History Hx Tobacco Use: Yes - dip Hx Chewing Tobacco Use: Yes Hx Alcohol Use: No Hx Substance Use: No Hx Depression: No Hx Physical Abuse: No Hx Emotional Abuse: No - Activities of Daily Living Hospice Agency (if applicable):: None - Female History Patient is a Female of Child Bearing Age (10 -59 yrs old): No Family Medical History - Family History Father Family History: Unknown Living Status: Unknown Physical Exam - Physical Exam General Appearance: Alert, Ill Appearing Eye Exam: bilateral normal Ears, Nose, Throat: hearing grossly normal, normal ENT inspection Neck: full range of motion, supple Respiratory: lungs clear, normal breath sounds, no respiratory distress, no accessory muscle use Cardiovascular/Chest: regular rate, rhythm, no murmur Peripheral Pulses: radial,right: 2+, radial,left: 2+ Gastrointestinal/Abdominal: non tender, soft Rectal Exam: deferred Back Exam: normal inspection, no CVA tenderness Extremity: normal range of motion, normal inspection, no calf tenderness Neurologic: no motor/sensory deficits, alert, normal mood/affect Skin Exam: normal color, warm/dry Lymphatic: no adenopathy Progress - Results/Orders Results/Orders: COVID POS. FLU NEG. CBC 38,000 (HAS KNOWN CLL. SEES ONC. THIS IS HIS "BASELINE" AND ONC TX IF GOES ABOVE 100,000.) CMP - UNREMARKABLE. POOR PO INTAKE, DEHYDRATION - 500 ML BOLUS. FEBRILE - GAVE TYLENOL COVID POS - PT IS SYMPTOMATIC BUT IS STABLE FOR CARE AT HOME (94% ON RA AT PRESENT). DESPITE CONCLUSIVE EVIDENCE, I HAVE ANECDOTALLY SEEN PTS IMPROVE WITH AZITHROMYCIN, HYDROXYCHLOROQUINE, DEXAMETHASONE; AND ALBUTEROL INH PRN. WILL RX. Departure - Departure Clinical Impression: COVID-19 virus infection, CLL (chronic lymphocytic leukemia), Dehydration, mild, Myalgia, Anosmia Febrile Qualifiers: Fever type: due to other condition Qualified Code(s): R50.81 - Fever presenting with conditions classified elsewhere Disposition: Discharge to Home or Self Care Departure Forms: ED Discharge - Pt. Copy, Patient Portal Self Enrollment Instructions: Coronavirus Disease 2019 (COVID-19) ED Diet: bland diet Activity: other - GET PLENTY OF REST. Referrals: Jah Soto MD [Primary Care Provider] - 1-5 Days Prescriptions: Dexamethasone 6 mg PO DAILY 5 Days #5 tab Hydroxychloroquine Sulfate [Hydroxychloroquine Sulfat] 200 mg PO BID 5 Days #10 tab Albuterol Inhaler [Ventolin Hfa Inhaler] 2 puff INH Q6H PRN #1 inh PRN Reason: WHEEZE Azithromycin Tab [Zithromax Tab] 250 mg PO DAILY 4 Days #4 tab Home Medications: Ambulatory Orders Simvastatin [Zocor] 40 mg PO DAILY #0 04/22/17 Misc Natural Products [Green Tea] 2 tab PO DAILY 10/02/17 [place] 3 1000 mg 1,000 mg PO BID 10/02/17 Clindamycin HCl [Cleocin] 300 mg PO BID #30 cap 12/24/17 Tramadol HCl 50 mg PO TID #14 tab 12/24/17 Albuterol Inhaler [Ventolin Hfa Inhaler] 2 puff INH Q6H PRN #1 inh 06/09/20 Azithromycin Tab [Zithromax Tab] 250 mg PO DAILY 4 Days #4 tab 06/09/20 Dexamethasone 6 mg PO DAILY 5 Days #5 tab 06/09/20 Hydroxychloroquine Sulfate [Hydroxychloroquine Sulfat] 200 mg PO BID 5 Days #10 tab 06/09/20 Additional Instructions: Please return to the ER if your breathing worsens.
[2020-06-09] MEDS ORDERED: AZITHROMYCIN 250 MG TAB PO ONE (17:04)
[2020-06-09 17:23] VITALS: BP 118/59; TEMP 100; O2SAT 93
== END 2020-06-09 17:23 | disposition home or self-care (01) ==
LOC: ER 12:57
DX: U07.1 COVID-19 (principal); E86.0 Dehydration; R43.0 Anosmia; C91.10 Chronic lymphocytic leukemia of B-cell type not having achieved remission; E78.00 Pure hypercholesterolemia, unspecified; I10 Essential (primary) hypertension; Z87.891 Personal history of nicotine dependence; Z79.899 Other long term (current) drug therapy; Z88.8 Allergy status to other drugs, medicaments and biological substances
CPT/HCPCS: 36415; 80053; 85025; 87502; 87635; J2930; J7030; Q0144

== ENCOUNTER 2020-06-11 08:06 | Inpatient (IN) | payer BC ==
[2020-06-11] MEDS ORDERED: PANTOPRAZOLE SODIUM IV 40 MG VIAL IV ONE (08:24)
[2020-06-11] MEDS ORDERED: SODIUM CHLORIDE 0.9% 1000ML 1,000 ML IVS ONE (08:24)
[2020-06-11] MEDS ORDERED: PROMETHAZINE HCL INJ 25 MG in SODIUM CHLORIDE 0.9% 50ML 50 ML IVPB ONE (08:24)
[2020-06-11] MEDS ORDERED: DEXAMETHASONE INJ 4 MG/ML VIAL IV ONE (08:25)
--- NOTE | 2020-06-11 08:57 | RAD ---
EXAM: Abdomen Series INDICATION: 59 years Male, nv covid COMPARISON: None available FINDINGS: Acute abdominal series was obtained on 3 images. Heart size is within normal limits. Low lung volumes. Mild prominence of the central pulmonary vasculature. No pulmonary infiltrate. No sizable pleural effusion. No pneumothorax. No free air beneath the diaphragm. A dilated loop of distal small bowel is seen in the right lower quadrant. Air is present within nondilated colon and in more proximal loops of small bowel in the left abdomen. Degenerative changes in the spine. No evidence for pneumoperitoneum. No abnormal calcifications are identified. IMPRESSION: Dilated loop of distal small bowel in the right lower quadrant. This could represent localized ileus or early/low grade obstruction. Electronically signed by: Aye Potts MD 06/11/2020 8:55 AM [facility]
[2020-06-11] MEDS ORDERED: IBUPROFEN 200 MG TAB PO ONE (09:25)
[2020-06-11] MEDS ORDERED: SUCRALFATE 1 GM/10 ML 1 GM UD PO ONE (09:26)
[2020-06-11] MEDS ORDERED: REMDESIVIR 200 MG in SODIUM CHLORIDE 0.9% 250ML 250 ML IVPB ONE (09:48)
--- NOTE | 2020-06-11 10:14 | CT ---
EXAM DESCRIPTION: Abdoment/Pelvis w/o Contrast CLINICAL HISTORY: nv, dil loop small bowel on xray, covid COMPARISON: March 09, 2019 TECHNIQUE: Noncontrast transaxial CT images of the abdomen and pelvis are obtained. This exam was performed according to our departmental dose-optimization program, which includes automated exposure control, adjustment of the mA and/or kV according to patient size and/or use of iterative reconstruction technique . FINDINGS: Visualized lung bases show groundglass attenuation in the posterior right lower lobe with mild peripheral interstitial thickening and groundglass attenuation in the left lower lobe. Given the limitations of a noncontrast exam the liver, spleen, pancreas, adrenal glands, and gallbladder are unremarkable. Mild vascular calcifications. Tiny 2 mm nonobstructing calcification in the midpole calyx of the right kidney. Tiny 2 mm nonobstructing calcification in the midpole calyx of the left kidney. No ureteral calcification or obstruction. Urinary bladder is poorly distended but unremarkable. The prostate is mildly enlarged measuring 4.3 x 5.3 cm. The appendix is normal. The stomach, small bowel, and colon show no acute findings. Mild scattered diverticuli of the colon without associated inflammatory changes or fluid collections. No pathologic lymphadenopathy. No free intraperitoneal air or abnormal drainable fluid collections. Spondylitic changes of the spine are seen with degenerative changes of the sacroiliac joints. Small fat-containing right inguinal hernia. Small fat-containing umbilical hernia IMPRESSION: Commonly reported imaging features of COVID-19 pneumonia are present. Other processes such as influenza pneumonia and organizing pneumonia, as can be seen with drug toxicity and connective tissue disease, can cause a similar imaging pattern. [PneTyp] Reference: https://pubs.rsna.org/doi/full/10.1148/ryct.[email or web address] No acute findings on CT of the abdomen and pelvis. No CT evidence of acute appendicitis. Mild nonobstructing bilateral nephrolithiasis. Mild colon diverticulosis without CT evidence of diverticulitis. Enlarged prostate. Recommend correlation with physical exam findings and serum PSA Electronically signed by: Jozef Murillo MD 06/11/2020 10:13 AM [facility]
[2020-06-11] MEDS ORDERED: AZITHROMYCIN IV 500 MG in SODIUM CHLORIDE 0.9% 250ML 250 ML IVPB ONE (10:23)
[2020-06-11] MEDS ORDERED: cefTRIAXone SODIUM 1 GM in SODIUM CHL 0.9% 50ML MIN-BAG+ 50 ML IVPB ONE (10:23)
--- NOTE | 2020-06-11 10:34 | ED.PDOC ---
History of Present Illness - General Chief Complaint: Respiratory Problem Time Seen by Provider: 06/11/20 08:09 Source: patient Exam Limitations: no limitations - History of Present Illness Initial Comments: The patient is a 59-year-old male with a history of CLL and anxiety and depression presenting to emergency room secondary to worsening shortness of breath as well as nausea and vomiting starting last night. The patient had some mild upper respiratory symptoms starting last Monday. He did test positive for Covid on Monday. He does have some mild hypoxia here today with oxygen satur ations at rest ranging from 89 to 92% on room air. He does report some dyspnea at rest as well as some dyspnea on exertion. He is currently febrile. He has been on dexamethasone and azithromycin for the last couple of days. The patient reports he has thrown up 10 or 12 times since last night. No blood and no bile. No point abdominal tenderness. Vague abdominal cramping. No jaundice. Appar ently white blood cell counts normally range between 40 and 50,000. He is cooperative. He is anxious. His is helpful. He has not yet taken his venlafaxine this morning. Timing/Duration: 1 week Improving Factors: nothing Worsening Factors: eating Associated Symptoms: cough, diaphoresis, fever/chills, loss of appetite, malaise, nausea/vomiting, shortness of breath, weakness - Generalized Allergies/Adverse Reactions: Allergies Eszopiclone [From [facility]] Allergy (Verified 06/11/20 08:54) Home Medications: Ambulatory Orders Simvastatin [Zocor] 40 mg PO DAILY #0 04/22/17 Misc Natural Products [Green Tea] 2 tab PO DAILY 10/02/17 [place] 3 1000 mg 1,000 mg PO BID 10/02/17 Clindamycin HCl [Cleocin] 300 mg PO BID #30 cap 12/24/17 Tramadol HCl 50 mg PO TID #14 tab 12/24/17 Albuterol Inhaler [Ventolin Hfa Inhaler] 2 puff INH Q6H PRN #1 inh 06/09/20 Azithromycin Tab [Zithromax Tab] 250 mg PO DAILY 4 Days #4 tab 06/09/20 Dexamethasone 6 mg PO DAILY 5 Days #5 tab 06/09/20 Hydroxychloroquine Sulfate [Hydroxychloroquine Sulfat] 200 mg PO BID 5 Days #10 tab 06/09/20 Review of Systems - Review of Systems Constitutional: States: chills, diaphoresis, fever, malaise, weakness - Generalized EENTM: States: nose congestion - More so earlier in the course Respiratory: States: cough, short of breath Cardiology: States: no symptoms reported Gastrointestinal/Abdominal: States: nausea, vomiting Genitourinary: States: no symptoms reported Musculoskeletal: States: other - Muscle aches Skin: States: no symptoms reported Neurological: States: anxiety, depressed Endocrine: States: no symptoms reported All other Systems: No Change from Baseline Past Medical History (General) - Patient Medical History Hx Seizures: No Hx Stroke: No Hx Asthma: No Hx of COPD: No Hx Cardiac Disorders: Yes - hypercholesterolemia Hx Congestive Heart Failure: No Hx Pacemaker: No Hx Hypertension: Yes Hx Diabetes: No Hx Renal Disease: No Hx Cancer: Yes - CLL Hx Hepatitis C: No Hx MRSA: No - Vaccination History Hx Tetanus, Diphtheria Vaccination: Yes Hx Influenza Vaccination: No - Social History Hx Tobacco Use: Yes - dip Hx Chewing Tobacco Use: Yes Hx Alcohol Use: No Hx Substance Use: No Hx Depression: No Hx Physical Abuse: No Hx Emotional Abuse: No Family Medical History - Family History Father Family History: Unknown Living Status: Unknown Physical Exam - Physical Exam General Appearance: Alert, Anxious, Ill Appearing Eye Exam: bilateral normal Ears, Nose, Throat: hearing grossly normal, normal pharynx Neck: non-tender, full range of motion Respiratory: no respiratory distress, no accessory muscle use, rales - Scattered primarily bases Cardiovascular/Chest: normal peripheral pulses, regular rate, rhythm - Borderline tachycardia, no edema Peripheral Pulses: radial,right: 2+, radial,left: 2+ Gastrointestinal/Abdominal: non tender - No rebound or peritoneal signs. 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 The patient does have significant anxiety and depression issues on top of his chronic problems, including CLL. The patient has coronavirus pneumonia. Coronavirus may be causing the gastrointestinal issues but they may be also due to the azithromycin. The patient has received Phenergan for nausea and vomiting. He has received a liter of IV fluids for mild dehydration from the nausea and vomiting. He has received Protonix and Carafate as well for the stomach upset. CT scan of abdomen pelvis fails to show acute pathology othe rwise. It does confirm the coronavirus pneumonia however. He has received doses of IV Rocephin and azithromycin. He is receiving a dose of IV remdesivir. He has received a dose of IV dexamethasone. The patient does have borderline hypoxia and is being placed on low flow nasal cannula as much is for symptomatic relief as for correction of the mild hypoxia. Admit for continued care and monitoring. misty lópez [id number] - Results/Orders Results/Orders: EKG shows normal sinus rhythm at 86 bpm. Mild T wave inversions in lead III. Normal R wave progression. No ST segment or T wave changes otherwise indicative of acute ischemia. Normal QT interval. Mild left atrial dilation. Acute abdominal series shows a small dilated loop of bowel. No large lobar pneumonia. CT scan abdomen pelvis without contrast shows posterior inferior left lower lobe and right lower lobe groundglass opacities. He also has longstanding small inguinal or umbilical hernias containing fat only. No acute pathology otherwise. See report for full details. Laboratory Results - last 24 hr 06/11/20 06/11/20 06/11/20 08:30 08:30 08:30 WBC 47.9 H* RBC 4.59 L Hgb 14.3 Hct 43.1 MCV 93.8 MCH 31.1 H MCHC 33.1 RDW 15.3 H Plt Count 240 MPV 8.1 Absolute Neuts (auto) 7.30 H Absolute Lymphs (auto) 39.80 H Absolute Monos (auto) 0.70 Absolute Eos (auto) 0.00 Absolute Basos (auto) 0.00 Total Counted Cancelled Neutrophils % 15.2 L Neutrophils % (Manual) Cancelled Lymphocytes % 83.2 H Lymphocytes % (Manual) Cancelled Monocytes % 1.5 L Monocytes % (Manual) Cancelled Eosinophils % 0.0 L Basophils % 0.1 Band Neutrophils Cancelled Eosinophils Cancelled Basophils Cancelled Metamyelocytes Cancelled Myelocytes Cancelled Promyelocytes Cancelled Nucleated RBCs Cancelled Hypersegmented Polys Cancelled Blast Cells Cancelled Plasma Cells Cancelled Other Cell Type Cancelled Hypochromia Cancelled Toxic Granulation Cancelled Dohle Bodies Cancelled Frank Rods Cancelled Platelet Estimate Cancelled Normal RBC Morphology Cancelled Polychromasia Cancelled Poikilocytosis Cancelled Basophilic Stippling Cancelled Anisocytosis Cancelled Microcytosis Cancelled Macrocytosis Cancelled Spherocytes Cancelled Sickle Cells Cancelled Target Cells Cancelled Ovalocytes Cancelled Stomatocytes Cancelled Helmet Cells Cancelled [place] Bodies Cancelled Tamiment Rings Cancelled Suzan Cells Cancelled Acanthocytes (Spur) Cancelled Rouleaux Cancelled Schistocytes Cancelled RBC Morph Comment Cancelled PUBS Tear Drop Cells Cancelled PT 11.5 H INR 1.16 H PTT (SP) 26.6 Fibrinogen D-Dimer, Quantitative 240.0 Sodium 131 L Potassium 3.7 Chloride 99 L Carbon Dioxide 20 L Anion Gap 15.7 BUN 20 H Creatinine 1.22 BUN/Creatinine Ratio 16.4 Random Glucose 129 H Serum Osmolality 267.0 L Lactic Acid Calcium 8.0 L Magnesium Ferritin Total Bilirubin 1.2 H AST 109 H D ALT 149 H D Alkaline Phosphatase 115 LD Total Creatine Kinase 115 CK-MB (CK-2) 1.4 CK-MB (CK-2) % Not Reportable Troponin I 0.04 C-Reactive Protein B-Natriuretic Peptide 97.7 Serum Total Protein 6.5 Albumin 3.6 Globulin 2.9 Albumin/Globulin Ratio 1.2 Amylase 65 Lipase TSH Urine Color Urine Appearance Urine pH Ur Specific [place] Urine Protein Urine Glucose (UA) Urine Ketones Urine Blood Urine Nitrite Urine Bilirubin Urine Urobilinogen Ur Leukocyte Esterase Urine RBC Urine WBC Ur Epithelial Cells Amorphous Sediment Urine Bacteria 06/11/20 06/11/20 06/11/20 08:30 08:30 08:30 WBC RBC Hgb Hct MCV MCH MCHC RDW Plt Count MPV Absolute Neuts (auto) Absolute Lymphs (auto) Absolute Monos (auto) Absolute Eos (auto) Absolute Basos (auto) Total Counted Neutrophils % Neutrophils % (Manual) Lymphocytes % Lymphocytes % (Manual) Monocytes % Monocytes % (Manual) Eosinophils % Basophils % Band Neutrophils Eosinophils Basophils Metamyelocytes Myelocytes Promyelocytes Nucleated RBCs Hypersegmented Polys Blast Cells Plasma Cells Other Cell Type Hypochromia Toxic Granulation Dohle Bodies Frank Rods Platelet Estimate Normal RBC Morphology Polychromasia Poikilocytosis Basophilic Stippling Anisocytosis Microcytosis Macrocytosis Spherocytes Sickle Cells Target Cells Ovalocytes Stomatocytes Helmet Cells [place] Bodies Tamiment Rings Suzan Cells Acanthocytes (Spur) Rouleaux Schistocytes RBC Morph Comment PUBS Tear Drop Cells PT INR PTT (SP) Fibrinogen D-Dimer, Quantitative Sodium Potassium Chloride Carbon Dioxide Anion Gap BUN Creatinine BUN/Creatinine Ratio Random Glucose Serum Osmolality Lactic Acid 1.6 Calcium Magnesium 2.1 Ferritin 238.4 Total Bilirubin AST ALT Alkaline Phosphatase LD Total Creatine Kinase CK-MB (CK-2) CK-MB (CK-2) % Troponin I C-Reactive Protein B-Natriuretic Peptide Serum Total Protein Albumin Globulin Albumin/Globulin Ratio Amylase Lipase 36 TSH 1.07 Urine Color Urine Appearance Urine pH Ur Specific [place] Urine Protein Urine Glucose (UA) Urine Ketones Urine Blood Urine Nitrite Urine Bilirubin Urine Urobilinogen Ur Leukocyte Esterase Urine RBC Urine WBC Ur Epithelial Cells Amorphous Sediment Urine Bacteria 06/11/20 06/11/20 06/11/20 08:30 08:30 09:45 WBC RBC Hgb Hct MCV MCH MCHC RDW Plt Count MPV Absolute Neuts (auto) Absolute Lymphs (auto) Absolute Monos (auto) Absolute Eos (auto) Absolute Basos (auto) Total Counted Neutrophils % Neutrophils % (Manual) Lymphocytes % Lymphocytes % (Manual) Monocytes % Monocytes % (Manual) Eosinophils % Basophils % Band Neutrophils Eosinophils Basophils Metamyelocytes Myelocytes Promyelocytes Nucleated RBCs Hypersegmented Polys Blast Cells Plasma Cells Other Cell Type Hypochromia Toxic Granulation Dohle Bodies Frank Rods Platelet Estimate Normal RBC Morphology Polychromasia Poikilocytosis Basophilic Stippling Anisocytosis Microcytosis Macrocytosis Spherocytes Sickle Cells Target Cells Ovalocytes Stomatocytes Helmet Cells [place] Bodies Tamiment Rings Suzan Cells Acanthocytes (Spur) Rouleaux Schistocytes RBC Morph Comment PUBS Tear Drop Cells PT INR PTT (SP) Fibrinogen 604 H D-Dimer, Quantitative Sodium Potassium Chloride Carbon Dioxide Anion Gap BUN Creatinine BUN/Creatinine Ratio Random Glucose Serum Osmolality Lactic Acid Calcium Magnesium Ferritin Total Bilirubin AST ALT Alkaline Phosphatase LD Total 211 H Creatine Kinase CK-MB (CK-2) CK-MB (CK-2) % Troponin I C-Reactive Protein 8.8 H* B-Natriuretic Peptide Serum Total Protein Albumin Globulin Albumin/Globulin Ratio Amylase Lipase TSH Urine Color Yellow Urine Appearance Clear Urine pH 5.5 Ur Specific [place] 1.025 Urine Protein 100 H Urine Glucose (UA) Negative Urine Ketones Negative Urine Blood Negative Urine Nitrite Negative Urine Bilirubin Negative Urine Urobilinogen 0.2 Ur Leukocyte Esterase Negative Urine RBC 0 Urine WBC 0-1 Ur Epithelial Cells 0-1 Amorphous Sediment 2+ Urine Bacteria Rare - EKG/XRAY/CT CT Ordered: Yes Departure - Departure Clinical Impression: Pneumonia due to 2019 novel coronavirus, CLL (chronic lymphocytic leukemia) Nausea & vomiting Qualifiers: Vomiting type: unspecified Vomiting Intractability: non-intractable Qualified Code(s): R11.2 - Nausea with vomiting, unspecified Gastritis Qualifiers: Gastritis type: superficial Chronicity: acute Gastritis bleeding: without blee ding Qualified Code(s): K29.00 - Acute gastritis without bleeding Disposition: Admit Patient Departure Forms: ED Discharge - Pt. Copy, Patient Portal Self Enrollment Referrals: Jah López MD [Primary Care Provider] - 1-2 Weeks Home Medications: Ambulatory Orders Simvastatin [Zocor] 40 mg PO DAILY #0 04/22/17 Misc Natural Products [Green Tea] 2 tab PO DAILY 10/02/17 [place] 3 1000 mg 1,000 mg PO BID 10/02/17 Clindamycin HCl [Cleocin] 300 mg PO BID #30 cap 12/24/17 Tramadol HCl 50 mg PO TID #14 tab 12/24/17 Albuterol Inhaler [Ventolin Hfa Inhaler] 2 puff INH Q6H PRN #1 inh 06/09/20 Azithromycin Tab [Zithromax Tab] 250 mg PO DAILY 4 Days #4 tab 06/09/20 Dexamethasone 6 mg PO DAILY 5 Days #5 tab 06/09/20 Hydroxychloroquine Sulfate [Hydroxychloroquine Sulfat] 200 mg PO BID 5 Days #10 tab 06/09/20 Decision To Admit - Decistion To Admit Decision to Admit Reason: Medical Nature Decision to Admit Date: 06/11/20 Decision to Admit Time: 10:42
--- NOTE | 2020-06-11 11:34 | HP ---
SUPERVISING PHYSICIAN: Mehdi Patiño M.D. CHIEF COMPLAINT: Nausea, vomiting, shortness of breath and cough. HISTORY OF PRESENT ILLNESS: This is a 59 year-old male patient with a history of chronic lymphocytic leukemia. He presented to the Emergency Room with a 2 to 3 day history of shortness of breath as well as nausea and vomiting. He also had a cough. He was actually tested for COVID on Monday but the nausea and vomiting has worsened. He has had some cramping. In the Emergency Room, his vital signs showed temperature 101.6, heart rate 112, blood pressure 168/95, respiratory rate 28, O2 saturation 95% on room air. Lab studies were done. WBCs are 47,900. His WBCs usually run between 40,000 and 50,000 with his CLL. Fibrinogen was 607, D-dimer was 240. Sodium 131, potassium 3.7, chloride 99, BUN 20, creatinine 1.22, glucose 129, calcium 8, magnesium 2.1, bilirubin 1.2, AST 109, ALT 149, CRP was 8.8. Lipase 36, TSH 1.07. Blood cultures were drawn. Abdominal x-ray showed dilated loops of distal small bowel in the right lower quadrant that could represent localized ileus or early low grade obstruction. An abdomen and pelvis CT has been completed and it showed commonly reported imaging features of COVID-19 pneumonia are present. Other processes such as Influenza pneumonia and organizing pneumonia, as can be seen with dry toxicity and connective tissue disease,. No acute findings on CT of the abdomen and pelvis. No CT evidence of acute appendicitis. Mild nonobstructing bilateral nephrolithiasis. Mild colon diverticulosis without CT evidence of diverticulitis. Enlarged prostate. Recommend physical examination as well as serum PSA. The patient was given some fluids as well as a breathing treatment and started on routine COVID medications, including Ceftriaxone, azithromycin, Remdesivir, Decadron and Lovenox. He was given breathing treatments and was admitted to the hospital in stable condition. PAST MEDICAL HISTORY: 1. Coronary artery disease. 2. Hyperlipidemia. 3. Chronic lymphocytic leukemia. PAST SURGICAL HISTORY: 1. Right shoulder repair. 2. Left shoulder repair. 3. Left ankle surgery with plate. OUTPATIENT MEDICATIONS: Per the EMR. ALLERGIES: LUNESTA. FAMILY HISTORY: Positive for chronic lymphocytic leukemia, prostate cancer, renal failure. SOCIAL HISTORY: He lives in [place]. He is . He previously used smokeless tobacco but he quit in 2018. He drinks alcohol on a social basis and denies any illicit drug use. REVIEW OF SYSTEMS: GENERAL: Positive for fever and fatigue. Negative for weight changes. HEENT: Negative for sinus symptoms, ear pain or sore throat. RESPIRATORY: Positive for coughing and shortness of breath. Negative for wheezing. CARDIAC: Negative for chest pain, palpitations or tachycardia. GASTROINTESTINAL: Positive for nausea and vomiting. Negative for diarrhea or constipation. GENITOURINARY: Negative for hematuria, dysuria or polyuria. MUSCULOSKELETAL: Negative for arthralgias, myalgias. SKIN: Negative for lesions or rashes. NEUROLOGIC: Negative for weakness, headaches or seizures. PSYCHIATRIC: Positive for anxiety and depression. PHYSICAL EXAMINATION: VITAL SIGNS: Temperature 98.8, heart rate 72, blood pressure 126/78, respiratory rate 20, O2 saturation 94% on room air. GENERAL: This is a 59 year-old male patient who is lying in his hospital bed. He is quite anxious but in no acute respiratory distress. HEENT: Normocephalic, atraumatic. Pupils are equal and reactive. Oropharynx is clear. NECK: Supple with full range of motion. RESPIRATORY: Somewhat diminished at the bases, but otherwise clear to auscultation. CARDIAC: Regular rate and rhythm. GASTROINTESTINAL: Abdomen is soft, nondistended, nontender. Bowel sounds are positive. NEUROLOGIC: Awake, alert and oriented times three. SKIN: [place], warm and dry. PSYCHIATRIC: He is very anxious and even slightly agitated. LABORATORY: Labs and films as per History of Present Illness. ASSESSMENT: 1. Sepsis related to COVID-19 pneumonitis with concerns for developing pneumonia. 2. Nausea and vomiting with mild abdominal pain that has mostly resolved. 3. Chronic lymphocytic leukemia. 4. Coronary artery disease. 5. Anxiety and depression. PLAN: The patient has been admitted to the hospital. We with initiate COVID-19 guidelines, including Remdesivir, azithromycin, Rocephin, Decadron, Lovenox, Mucinex and Align. He will have aggressive pulmonary hygiene, including breathing treatments. Will monitor his lab and chest x-ray as per guidelines. His nausea and vomiting has mostly resolved, but I will put him on a full liquid diet overnight and repeat his abdominal x-ray in the morning. If needed, we can consult Dr. Munoz. His home medications will be restarted as soon as they are verified. The patient will need reassurance due to his CLL and COVID. Will monitor and treat as needed. #[id number] [facility]
[2020-06-11] MEDS ORDERED: ALBUTEROL INHALER 64 PUFF/8GM INH PRN (17:10)
[2020-06-11] MEDS ORDERED: SODIUM CHLORIDE 0.9% (FLUSH) 10 ML SYG IV PRN (17:11)
[2020-06-11] MEDS ORDERED: ACETAMINOPHEN 325 MG TAB PO PRN (17:11)
[2020-06-11] MEDS ORDERED: ONDANSETRON INJ 4 MG/2 ML VIAL IV PRN (17:11)
[2020-06-11] MEDS ORDERED: PROMETHAZINE HCL INJ 25 MG in SODIUM CHLORIDE 0.9% 50ML 50 ML IVPB PRN (17:16)
[2020-06-11] MEDS: ACETAMINOPHEN 325 MG TAB PO PRN (17:27)
[2020-06-11] MEDS ORDERED: IV SET AND CAP CHANGE INJ INJ SCH (17:30)
[2020-06-11] MEDS: BIFIDOBACTERIUM INFANTIS 4 MG CAP PO SCH (20:22)
[2020-06-11] MEDS: guaiFENesin ER TAB 600 MG TAB PO SCH (20:22)
[2020-06-11] MEDS: traMADol HCL 50 MG TAB PO SCH (20:23)
[2020-06-11] MEDS: TEMAZEPAM 15 MG CAP PO PRN (20:23)
[2020-06-11] MEDS: ENOXAPARIN SODIUM 40 MG/0.4 ML SYG SUBCU SCH (20:26)
[2020-06-11] MEDS: ALBUTEROL INHALER 64 PUFF/8GM INH SCH (21:00)
[2020-06-12] MEDS: ACETAMINOPHEN 325 MG TAB PO PRN ×2 (00:30→05:32)
[2020-06-12] MEDS: TEMAZEPAM 15 MG CAP PO PRN ×2 (00:37→20:50)
[2020-06-12] MEDS: PANTOPRAZOLE SODIUM IV 40 MG VIAL IV SCH (06:05)
[2020-06-12] MEDS ORDERED: IBUPROFEN 400 MG TAB ONE (09:09)
[2020-06-12] MEDS: ALBUTEROL INHALER 64 PUFF/8GM INH SCH ×4 (09:15→20:55)
[2020-06-12] MEDS: traMADol HCL 50 MG TAB PO SCH ×3 (09:52→20:51)
[2020-06-12] MEDS: cefTRIAXone SODIUM 1 GM in SODIUM CHL 0.9% 50ML MIN-BAG+ 50 ML IVPB SCH (09:52)
[2020-06-12] MEDS: guaiFENesin ER TAB 600 MG TAB PO SCH ×2 (09:52→20:51)
[2020-06-12] MEDS: BIFIDOBACTERIUM INFANTIS 4 MG CAP PO SCH ×2 (09:53→20:50)
[2020-06-12] MEDS: DEXAMETHASONE INJ 10 MG/ML VIAL IV SCH (09:53)
[2020-06-12] MEDS: AZITHROMYCIN IV 500 MG in SODIUM CHLORIDE 0.9% 250ML 250 ML IVPB SCH (09:54)
[2020-06-12] MEDS: ALPRAZolam 0.5 MG TAB PO PRN ×2 (10:43→20:51)
[2020-06-12] MEDS ORDERED: IBUPROFEN 200 MG TAB ONE (10:43)
[2020-06-12] MEDS: IBUPROFEN 200 MG TAB PO PRN ×2 (10:43→21:09)
--- NOTE | 2020-06-12 11:34 | RAD ---
EXAM DESCRIPTION: Abdomen 1 View CLINICAL HISTORY: covid; abd pain COMPARISON: X-ray abdomen series June 11, 2020, CT abdomen and pelvis June 11, 2020 TECHNIQUE: KUB FINDINGS: Compared to previous x-ray abdomen, more air distended bowel loops are seen in the left upper abdomen. There is gas in the colon and in the rectum arguing against obstruction. Degenerative rightward curvature of the lumbar spine. Intact bones of the pelvic ring. No abnormal calcifications, mass or visceromegaly. IMPRESSION: Nonspecific nonobstructive bowel gas pattern. Electronically signed by: Harvinder Young MD 06/12/2020 11:32 AM [facility]
--- NOTE | 2020-06-12 11:35 | RAD ---
EXAM DESCRIPTION: Chest,1 View CLINICAL HISTORY: 59 years Male, covid; abd pain COMPARISON: Previous CT abdomen June 11, 2020 TECHNIQUE: AP portable chest. FINDINGS: Heart size is prominent with mildly increased central pulmonary vascularity but no octavia congestive failure. Consolidating infiltrates in of the lower lobes of the lungs and inferior lingula were seen on previous CT abdomen which included the lower chest. On the present study, vague peripheral infiltrates are seen in the left suprahilar region, lingular and left lower lobe regions and right perihilar region. The right lower lobe consolidation seen on previous CT is obscured by the mildly elevated right hemidiaphragm. No pulmonary mass or worrisome nodule. No pneumothorax or pleural effusion. Bones are unremarkable. IMPRESSION: Bilateral pulmonary infiltrates consistent with pneumonia. Electronically signed by: Harvinder Young MD 06/12/2020 11:34 AM [employer]
[2020-06-12] MEDS: REMDESIVIR 100 MG in SODIUM CHLORIDE 0.9% 250ML 250 ML IVPB SCH (12:20)
[2020-06-12] MEDS ORDERED: SIMVASTATIN 20 MG TAB ONE (19:05)
[2020-06-12] MEDS: ENOXAPARIN SODIUM 40 MG/0.4 ML SYG SUBCU SCH (20:52)
[2020-06-12] MEDS ORDERED: SIMVASTATIN 20 MG TAB PO SCH (21:00)
--- NOTE | 2020-06-12 21:31 | PN ---
SUPERVISING PHYSICIAN: Mehdi Patiño M.D. DATE: 06/12/20 SUBJECTIVE: The patient is lying in bed. He is much calmer than previously. Earlier it was reported by nursing that he was very agitated and anxious. He was concerned that he was going to from COVID and he admitted he has not slept for about 4 to 5 nights due to his anxiety. He has increased anxiety because of his CLL. Earlier he was given Xanax and he actually slept a couple of hours. Denies nausea and vomiting. He has no abdominal pains and has tolerate this without issues. OBJECTIVE: VITAL SIGNS: Temperature 102.3. After treatment, it went down to 98.7. Heart rate 99, it went down to 74. Blood pressure 113/78, respiratory rate 18, O2 saturation 94% on room air. RESPIRATORY: Diminished at the bases, otherwise clear to auscultation. CARDIAC: Regular rate and rhythm. NEUROLOGIC: He is awake, alert and oriented times three. LABORATORY: WBCs are down to 37,800 with hemoglobin 13.7, hematocrit 40.5. Fibrinogen 633 with a D-dimer of 376. Sodium is slightly low at 133, calcium is low at 7.6, bilirubin 1.3. AST 63, ALT 118, creatinine kinase 175, CRP 13.2. Preliminary blood cultures show no growth. Chest x-ray shows bilateral pulmonary infiltrates consistent with pneumonia. Abdominal x-ray shows nonspecific obstructive bowel gas pattern. All other labs and films have been reviewed via the EMR. ASSESSMENT: 1. Sepsis related to COVID-19 pneumonitis with concerns for developing bilateral pneumonia, community acquired. 2. Nausea and vomiting that has mostly resolved. 3. Chronic lymphocytic leukemia. 4. Coronary artery disease. 5. Anxiety and depression. PLAN: The patient will be given p.r.n. Xanax for his anxiety. He was given reassurance that his condition was stable. He will continue on the COVID-19 guidelines, including the antibiotics, antivirals, steroids and breathing treatments. He will continue with his Lovenox for DVT prophylaxis. He will have aggressive pulmonary hygiene. I will follow his labs and treat as indicated. #[id number] [facility]
[2020-06-13] MEDS: PANTOPRAZOLE SODIUM IV 40 MG VIAL IV SCH (05:54)
[2020-06-13] MEDS: ALPRAZolam 0.5 MG TAB PO PRN ×2 (07:30→13:58)
[2020-06-13] MEDS: IBUPROFEN 200 MG TAB PO PRN (07:30)
[2020-06-13] MEDS: BIFIDOBACTERIUM INFANTIS 4 MG CAP PO SCH (08:45)
[2020-06-13] MEDS: traMADol HCL 50 MG TAB PO SCH ×2 (08:45→13:58)
[2020-06-13] MEDS: DEXAMETHASONE INJ 10 MG/ML VIAL IV SCH (08:46)
[2020-06-13] MEDS: cefTRIAXone SODIUM 1 GM in SODIUM CHL 0.9% 50ML MIN-BAG+ 50 ML IVPB SCH (08:46)
[2020-06-13] MEDS: AZITHROMYCIN IV 500 MG in SODIUM CHLORIDE 0.9% 250ML 250 ML IVPB SCH (08:47)
[2020-06-13] MEDS: guaiFENesin ER TAB 600 MG TAB PO SCH (08:58)
[2020-06-13] MEDS: REMDESIVIR 100 MG in SODIUM CHLORIDE 0.9% 250ML 250 ML IVPB SCH (11:27)
--- NOTE | 2020-06-13 13:38 | RAD ---
EXAM DESCRIPTION: Chest,1 View CLINICAL HISTORY: covid COMPARISON: None available FINDINGS: The cardiomediastinal silhouette is unremarkable. Bilateral interstitial and patchy alveolar opacity. No pleural effusion. The lung volumes are within normal range. There is no pneumothorax or acute fracture. IMPRESSION: Bilateral pneumonia or edema. COVID-19 could have this appearance. Electronically signed by: Rietsh Blanchard MD 06/13/2020 1:36 PM ASSEMBLY PERSON
[2020-06-13 14:16] VITALS: O2SAT 98
[2020-06-13 18:33] VITALS: BP 132/80; TEMP 98.8
--- NOTE | 2020-06-26 14:10 | DS ---
SUPERVISING PHYSICIAN: Mehdi Patiño MD DISCHARGE DIAGNOSIS: 1. Sepsis related to COVID-19 pneumonitis with concerns for developing bilateral pneumonia, community acquired. 2. Nausea and vomiting, mostly resolved. 3. Chronic lymphocytic leukemia. 4. Coronary artery disease. 5. Anxiety and depression. HISTORY OF PRESENT ILLNESS: This is a 59-year-old male patient with a history of chronic lymphocytic leukemia. He came to the Emergency Room with a 2 to 3 day history of shortness of breath as well as nausea and vomiting. He also had a cough. He tested positive for COVID on Monday. His nausea and vomiting had worsened. He also had some abdominal cramping. His temperature in the ER was 101.6, heart rate 112, blood pressure 168/95, respiratory rate 28, O2 saturation 95% on room air. WBCs are 47,900. His WBCs usually run between 40,000 and 50,000 with his CLL. Fibrinogen was 607, D-dimer was 240. Blood cultures were drawn. Abdominal x-ray showed dilated loops of distal small bowel in the right lower quadrant that could represent localized ileus or early low grade obstruction. An abdomen and pelvis CT showed commonly reported imaging features of COVID-19 pneumonia and no acute findings of the abdomen and pelvis. No CT evidence of acute appendicitis. Mild nonobstructing bilateral nephrolithiasis. Mild colon diverticulosis without CT evidence of diverticulitis. Enlarged prostate. The patient was given fluids in the ER as well as breathing treatments and started on routine COVID medications, including ceftriaxone, azithromycin, Remdesivir, Decadron and Lovenox. He was admitted to the hospital in stable condition. HOSPITAL COURSE: The patient continued with the COVID-19 guidelines including Remdesivir, azithromycin, Rocephin, Decadron, Lovenox, Mucinex and Align. He also had bronchodilators with aggressive pulmonary hygiene. His labs and x-rays were monitored closely. He was given antiemetics and his diet was initially NPO, but was advanced as the patient tolerated. His home medications were restarted. The patient was very anxious due to his CLL and having the COVID diagnosis. He did not require any oxygen while he was admitted to the hospital. His O2 saturations remained in the upper 90s. His laboratory studies were stable. He did require some benzodiazepines for his anxiety and he will be discharged home today in stable condition. LABORATORY: WBCs initially were 47,900 and are now 41,600. Hemoglobin 15, hematocrit 44.7. D-dimer was 376 and is now 281. Electrolytes are unremarkable. Bilirubin is high at 1.3 with AST 74, ALT 150 and alkaline phosphatase 121. Creatinine kinase 352. C-reactive protein 15.7. Urinalysis was unremarkable. MICROBIOLOGY: Preliminary blood cultures showed no growth. RADIOLOGY: Final chest x-ray showed bilateral pneumonia or edema. COVID-19 could have this appearance. DISCHARGE PLAN: The patient will be discharged in stable condition. He is to resume his previous diet and increase his activity as tolerated. He will need to obtain a followup appointment with Dr. Soto, his primary care physician. In addition to his home medications, he will continue on Align, guaifenesin, cefdinir, albuterol, dexamethasone and azithromycin. I have given him a few Xanax. [facility] was consulted and there were no issues. He is to return to the hospital or followup Dr. Soto for any problems or complications. DISCHARGE MEDICATIONS: 1. Simvastatin. 2. [place]-3 fatty acids. 3. Tramadol. 4. Albuterol. 5. Hydroxychloroquine. 6. Align. 7. Guaifenesin. 8. Cefdinir. 9. Alprazolam. 10. Dexamethasone. 11. Azithromycin. #[id number] [facility]
== END 2020-06-13 16:15 | disposition home or self-care (01) | DRG 871 ==
LOC: ER 08:06 → OBSVTOIN 11:32 → MS 11:32
PROVIDERS: ADMIT Nurse Practitioner Acute Care; ATTEND Nurse Practitioner Acute Care
PROC: XW033E5 Introduction of Remdesivir Anti-infective into Peripheral Vein, Percutaneous Approach, New Technology Group 5 (ICD-10-PCS; principal; 2020-06-11)
DX: A41.89 Other specified sepsis (principal); U07.1 COVID-19; J12.82 Pneumonia due to coronavirus disease 2019; C91.10 Chronic lymphocytic leukemia of B-cell type not having achieved remission; K29.00 Acute gastritis without bleeding; I25.10 Atherosclerotic heart disease of native coronary artery without angina pectoris; E78.5 Hyperlipidemia, unspecified; F41.9 Anxiety disorder, unspecified; F32.9 Major depressive disorder, single episode, unspecified; Z87.891 Personal history of nicotine dependence

== ENCOUNTER → 2020-06-18 | Outpatient (CLI) | payer BC | LOC: GMAM 14:57 | PROVIDERS: ATTEND Family Medicine | DX: U07.1 COVID-19 (principal) ==

== ENCOUNTER → 2020-06-19 | Outpatient (CLI) | payer BC ==
--- NOTE | 2020-06-19 08:59 | CT ---
EXAM DESCRIPTION: Chest w/Contrast CLINICAL HISTORY: COVID 19 COMPARISON: None. TECHNIQUE: Postcontrast CT images of the chest are obtained using standard imaging protocol. This exam was performed according to our departmental dose-optimization program, which includes automated exposure control, adjustment of the mA and/or kV according to patient size and/or use of iterative reconstruction technique . FINDINGS: The heart and great vessels are unremarkable. Less than 1 cm mediastinal, hilar, and axillary lymph nodes are seen. No pleural or pericardial effusion. Visualized portion of the upper abdomen shows no acute findings. Lungs are hypoaerated. Focal patchy areas of moderate interstitial alveolar infiltrate with groundglass attenuation are seen in the lungs bilaterally most prominently in the bilateral posterior lower lobes. No pneumothorax. The tracheobronchial tree is unremarkable. Mild to moderate disc degenerative disease and facet arthropathy of the lumbar spine is seen. IMPRESSION: Moderate bilateral pulmonary airspace infiltrates mainly in the posterior aspect of the lungs compatible with bilateral pneumonia. Commonly reported imaging features of COVID-19 pneumonia are present. Other processes such as influenza pneumonia and organizing pneumonia, as can be seen with drug toxicity and connective tissue disease, can cause similar imaging pattern. Mildly enlarged mediastinal, hilar, and axillary lymphadenopathy is likely reactive. Electronically signed by: Joezf Murillo MD 06/19/2020 8:58 AM APPLICATION COUNSELOR
== END ==
LOC: CT 08:07
PROVIDERS: ATTEND Family Medicine
DX: U07.1 COVID-19 (principal); R59.0 Localized enlarged lymph nodes

== ENCOUNTER → 2020-06-24 | Outpatient (CLI) | payer BC | LOC: GMAM 14:29 | PROVIDERS: ATTEND Family Medicine | DX: U07.1 COVID-19 (principal) ==

== ENCOUNTER → 2020-07-02 | Outpatient (CLI) | payer BC | LOC: GMAM 14:40 | PROVIDERS: ATTEND Family Medicine | DX: U07.1 COVID-19 (principal) ==